=== PATIENT | female | born 1960 | race Caucasian/White ===

== ENCOUNTER 2024-02-11 12:22 | Emergency (ER) | payer OTHER ==
[2024-02-11] MEDS ORDERED: SODIUM CHLORIDE 0.9% 1000 ML INFUS.BAG IV STA (12:57)
[2024-02-11] MEDS ORDERED: RAPID SEQUENCE INTUBATION KIT NR ONE (13:14)
[2024-02-11] MEDS ORDERED: ROCURONIUM BROMIDE 50 MG/5 ML SYRINGE ONE (13:20)
[2024-02-11] MEDS ORDERED: EPINEPHrine 1:10,000 (P-F SYR) 1 MG/10 ML DISP.SYRIN ONE (13:28)
[2024-02-11 15:28] VITALS: BP 66/35; PULSE 80; RESP 20; TEMP 98.8; BMI 31.8
== END 2024-02-11 16:27 | disposition expired ==
LOC: JER 12:22
DX: I46.9 Cardiac arrest, cause unspecified (principal); J96.01 Acute respiratory failure with hypoxia; G93.41 Metabolic encephalopathy; R57.9 Shock, unspecified
CPT/HCPCS: 82962; 93005; 93010; 99291